=== PATIENT | female | born 1995 | race Caucasian/White ===

== ENCOUNTER 2019-02-26 12:04 | Observation (INO) | payer OTHER ==
[~2019-02-26] VITALS: Ht 154.9 cm; Wt 65.3 kg
[2019-02-26] MEDS ORDERED: TERBUTALINE SULFATE 1 MG/ML VIAL SUBCUT ONE (12:15)
== END 2019-02-26 15:00 | disposition home or self-care (01) ==
LOC: SPU 12:04
PROVIDERS: ADMIT Obstetrics & Gynecology; ATTEND Obstetrics & Gynecology
DX: O62.9 Abnormality of forces of labor, unspecified (principal); Z3A.39 39 weeks gestation of pregnancy
CPT/HCPCS: 76805; G0378

== ENCOUNTER 2019-03-03 11:20 | Inpatient (IN) | payer OTHER ==
[~2019-03-03] VITALS: Ht 154.9 cm; Wt 64.9 kg
[2019-03-03] MEDS ORDERED: LR 1,000 ML IV SCH (12:39)
[2019-03-03] MEDS ORDERED: LR 1,000 ML IV ONE (12:39)
[2019-03-03] MEDS ORDERED: OXYTOCIN/0.9 % SODIUM CHLORIDE 1,000 ML IV SCH ×2 (12:39→19:56)
[2019-03-03] MEDS ORDERED: NALBUPHINE HCL 10 MG/ML AMP IVP PRN (12:45)
[2019-03-03] MEDS ORDERED: LIDOCAINE PF 1% 30ML(POUR BTL) INJ ONE (12:45)
[2019-03-03] MEDS ORDERED: TERBUTALINE SULFATE 1 MG/ML VIAL SUBCUT ONE (12:45)
[2019-03-03] MEDS ORDERED: AMPICILLIN SODIUM 2 GM in NS 100 ML IV ONE (13:15)
[2019-03-03 13:33] LABS: BASOPHILS # (AUTO) 0.1 K/uL (0.0-0.2); BASOPHILS % (AUTO) 0.6 % (0.0-2.0); EOSINOPHILS # (AUTO) 0.1 K/uL (0.0-0.4); HEMOGLOBIN 13.1 g/dL (12.0-16.0); LYMPHOCYTES # (AUTO) 2.2 K/uL (1.0-5.5); LYMPHOCYTES % (AUTO) 21.9 % (20.5-51.5); MEAN CORPUSCULAR HEMOGLOBIN 32 pg (27-31); MEAN CORPUSCULAR HGB CONC 34 % (32-36); MEAN CORPUSCULAR VOLUME 92 fL (79.0-98.0); MONOCYTES # (AUTO) 0.6 K/uL (0.0-1.0); MONOCYTES % (AUTO) 6.3 % (1.7-9.3); NEUTROPHILS # (AUTO) 7.2 K/uL (1.8-7.7); NEUTROPHILS % (AUTO) 70.2 % (40.0-70.0); PLATELET COUNT (AUTO) 218 K/uL (130-430); RED BLOOD CELL COUNT(AUTO) 4.11 MIL/uL (4.2-6.2); RED CELL DISTRIBUTION WIDTH 13.2 % (9.0-15.0); WHITE BLOOD COUNT (AUTO) 10.2 K/uL (4.8-10.8)
[2019-03-03] MEDS ORDERED: AMPICILLIN SODIUM 2 GM VIAL ONE (13:39)
[2019-03-03] MEDS ORDERED: AMPICILLIN SODIUM 1 GM in NS 50 ML IV SCH (18:00)
[2019-03-03 18:02] VITALS: BP_SYST 115
[2019-03-03] MEDS ORDERED: OXYTOCIN/0.9 % SODIUM CHLORIDE 1,000 ML IV ONE (19:56)
[2019-03-03] MEDS ORDERED: WITCH HAZEL LEAF 1 MED.PAD MED.PAD TP PRN (20:00)
[2019-03-03] MEDS ORDERED: METHYLERGONOVINE MALEATE 0.2 MG TABLET PO PRN (20:00)
[2019-03-03] MEDS ORDERED: DERMOPLAST SPRAY TP PRN (20:00)
[2019-03-03] MEDS ORDERED: SENNOSIDES/DOCUSATE SODIUM 1 TAB TABLET(SENOKOT-S) PO PRN (20:00)
[2019-03-03] MEDS ORDERED: HYDROCORTISONE 0.5%, 28.35 GM TOPICAL CREAM TP PRN (20:00)
[2019-03-03] MEDS ORDERED: MEASLES,MUMPS&RUBELLA VACC/PF 12500 UNIT/0.5 ML VIAL SUBQ PRN (20:00)
[2019-03-03] MEDS ORDERED: DIPH-TET-PERTUS Vaccine 0.5 ML VIAL (ADACEL) I.M. PRN (20:00)
[2019-03-03] MEDS ORDERED: LANOLIN 7 GM OINT. TP PRN (20:00)
[2019-03-03] MEDS ORDERED: OXYCODONE/ACETAMINOPHEN 5-325 TABLET PO PRN ×2 (20:00)
[2019-03-03] MEDS ORDERED: DOCUSATE SODIUM 100 MG CAPSULE PO PRN (20:00)
[2019-03-03] MEDS ORDERED: ANUSOL 1 EA SUPP.RECT (PREPARATION H) RC PRN (20:00)
[2019-03-03] MEDS: IBUPROFEN 600 MG TABLET PO SCH (23:35)
[2019-03-04] MEDS: IBUPROFEN 600 MG TABLET PO SCH ×4 (05:37→17:51)
[2019-03-04 07:49] LABS: HEMATOCRIT 27.2 % (36-48); HEMOGLOBIN 9.4 g/dL (12.0-16.0)
== END 2019-03-04 20:00 | disposition home or self-care (01) | DRG 560 ==
LOC: SPU 11:20
PROVIDERS: ADMIT Obstetrics & Gynecology; ATTEND Obstetrics & Gynecology
PROC: 10E0XZZ Delivery of Products of Conception, External Approach (ICD-10-PCS; principal; 2019-03-03)
PROC: 0W8NXZZ Division of Female Perineum, External Approach (ICD-10-PCS; 2019-03-03)
DX: O80 Encounter for full-term uncomplicated delivery (principal); R71.0 Precipitous drop in hematocrit; Z37.0 Single live birth; Z3A.39 39 weeks gestation of pregnancy
CPT/HCPCS: 36415; 81002-TC; 85018-TC; 85025; 86592; 86886; 86900; 86901; 87536; J0290; J2001; J2300; J2590